=== PATIENT | male | born 1975 | race Hispanic/Latino ===

== ENCOUNTER 2022-08-25 20:42 | Emergency (ER) | payer OTHER ==
[~2022-08-25] VITALS: Ht 190.5 cm; Wt 140.2 kg
[2022-08-25] MEDS ORDERED: CLOTRIMAZOLE15 GM TOP (22:24)
[2022-08-25 22:30] VITALS: BP 120/88; PULSE 95; RESP 18; TEMP 97.6; O2SAT 96
== END 2022-08-25 22:30 | disposition home or self-care (01) ==
LOC: FSED 21:45
DX: N48.1 Balanitis (principal)
CPT/HCPCS: 99282